=== PATIENT | male | born 1970 | race African-American/Black ===

== ENCOUNTER 2017-07-19 16:37 | Emergency (ER) | payer MEDICAID ==
[~2017-07-19] VITALS: Ht 182.9 cm; Wt 79.4 kg
[2017-07-19 16:45] VITALS: BP 137/79
[2017-07-19 20:19] LABS: Urine Bacteria NONE SEEN /hpf (None Seen); Urine Blood Negative /uL (Negative); Urine Mucus FEW (None Seen); Urine Specific Gravity 1.029 (1.001-1.035); Urine WBC 3 /hpf (0 - 3)
[2017-07-19] MEDS ORDERED: cefTRIAXone 1GM/10ml IVPUSH 10 ML IV ONE (21:00)
[2017-07-19] MEDS ORDERED: SODIUM CHLORIDE 0.9% 1,000 ML IV ONE (21:00)
[2017-07-19] MEDS ORDERED: AZITHROMYCIN 250 MG TAB PO ONE (21:00)
[2017-07-19] MEDS ORDERED: methylPREDNISolone SOD SUCC 125 MG/2 ML VL IM ONE (21:00)
[2017-07-19] MEDS ORDERED: KETOROLAC TROMETH 30 MG/ML 1ML VIAL IV ONE (21:00)
[2017-07-19] MEDS ORDERED: cefTRIAXone SOD 1,000 MG VL ONE (21:25)
[2017-07-19 21:42] LABS: Basophils # (auto) 0 uL; Eosinophils # (auto) 0.1 uL; Hematocrit 41.1 % (41.0-53.0); Lymphocytes # (auto) 1.3 uL; Monocytes # (auto) 1.1 uL
[2017-07-19 21:43] LABS: Basophils % (auto) 0.5 % (0.0-2.0); Eosinophils % (auto) 0.7 % (0.0-7.0); Hemoglobin 14.4 g/dL (13.5-17.5); Lymphocytes % (auto) 17.1 % (10.0-50.0); Mean Corpuscular Hemoglobin 34.8 pg (28.0-32.0); Mean Corpuscular Volume 99.3 fL (80.0-100.0); Monocytes % (auto) 14.9 % (0.0-12.0); Neutrophils # (auto) 4.9 uL; Neutrophils % (auto) 66.8 % (37.0-80.0); Nucleated Red Blood Cells % 0.1 %; Platelet Count (auto) 258 10^3/uL (140-450); Red Blood Cells 4.14 10^6/uL (4.5-5.90); Red Cell Distribution Width 13.2 % (11.8-14.3); White Blood Cell 7.3 10^3/uL (4.4-10.8)
[2017-07-19 21:48] LABS: Albumin 3.3 g/dL (3.4-5.0); BUN/Creatinine Ratio 14.9; Calcium 8.3 mg/dL (8.5-10.1); Potassium 3.9 mmol/L (3.5-5.1)
[2017-07-19 21:51] LABS: Bilirubin, Total 0.5 mg/dL (0.2-1.0); Total Protein 7.1 g/dL (6.4-8.2)
== END 2017-07-19 22:34 | disposition home or self-care (01) ==
LOC: ER 16:37
DX: J04.0 Acute laryngitis (principal); F17.210 Nicotine dependence, cigarettes, uncomplicated; G89.29 Other chronic pain; M54.5 Low back pain; I88.8 Other nonspecific lymphadenitis
CPT/HCPCS: 36415; 71045; 80053; 81001; 85025; 96361; 96372; 96374; 96375; 99285; J0696; J1885; J2930; J7030